=== PATIENT | female | born 1960 | race Two or more races ===

== ENCOUNTER 2018-12-28 08:14 | Day surgery (SDC) | payer OTHER ==
[2018-12-28] MEDS ORDERED: PROPOFOL 20 ML (09:55)
[2018-12-28] MEDS ORDERED: MIDAZOLAM 1 MG/ML 2 ML INJ (09:55)
[2018-12-28] MEDS ORDERED: ETOMIDATE 20 MG INJ (09:57)
[2018-12-28] MEDS ORDERED: LIDOCAINE 4% SOLUTION 50 ML BTL (10:06)
[2018-12-28] MEDS ORDERED: LABETALOL HCL 20MG INJ IV (10:30)
[2018-12-28] MEDS ORDERED: HYDROmorphONE 1 MG/5 ML IV SYRINGE IV (10:30)
[2018-12-28] MEDS ORDERED: ONDANSETRON 4 MG INJ IV (10:30)
== END 2018-12-28 12:31 | disposition home or self-care (01) ==
LOC: GIL 08:14
DX: Z12.11 Encounter for screening for malignant neoplasm of colon (principal); K64.8 Other hemorrhoids; K57.30 Diverticulosis of large intestine without perforation or abscess without bleeding; K44.9 Diaphragmatic hernia without obstruction or gangrene; K21.0 Gastro-esophageal reflux disease with esophagitis; J45.909 Unspecified asthma, uncomplicated; E66.9 Obesity, unspecified; Z68.41 Body mass index [BMI] 40.0-44.9, adult
CPT/HCPCS: 43239; 88305; 88312